=== PATIENT | female | born 1955 | race Caucasian/White ===

== ENCOUNTER 2018-05-16 08:58 | Observation (INO) | payer BC ==
[~2018-05-16] VITALS: Ht 177.8 cm; Wt 118.4 kg
[~2018-05-16 08:58] MED LIST: ALBU90OI INH; AMOCLA875 PO; ASPI325EC PO; ASPI81CH PO; ATOR10; BENZ100A PO; BUME2 PO; Bystolic10 MG PO; COLE1 PO; CONEST.3 PO; CONEST.625; CYCL10 PO; DICY20 PO; DULO60; DULO60 PO; ESOM20 PO; ESTEST.625 PO; ESTR.625; ESTRADOIL; FLUO20 PO; HYDSUL200 PO; K-Dur 20 meq T20 MEQ PO; KETO10 PO; LEVFLO500 PO; LEVSOD125 PO; LEVSOD200 PO; LEVSOD25 PO; LEVSOD50 PO; LORA1 PO; LOSA50 PO; MAGOXI400 PO; MENEST; OLME20 PO; PANT20 PO; POTCHL20ER PO; ROSU10TA; SERT50; ZOLP10; ZOLP10 PO
[2018-05-16 09:53] LABS: BASOPHILS ABSOLUTE AUTO 0.03 K/mm3 (0.00-0.23); BASOPHILS PERCENT AUTO 0 % (0-2); EOSINOPHILS ABSOLUTE AUTO 0.01 K/mm3 (0.00-0.68); EOSINOPHILS PERCENT AUTO 0 % (0-6); Hematocrit 42.6 % (33.0-51.0); Hemoglobin 13.8 g/dL (11.5-16.0); IMMATURE GRAN ABSOLUTE AUTO 0.06 K/mm3 (0.00-0.10); IMMATURE GRAN PERCENT AUTO 0 % (0-1); LYMPHOCYTES ABSOLUTE AUTO 0.67 K/mm3 (0.84-5.20); LYMPHOCYTES PERCENT AUTO 4 % (21-46); MONOCYTES ABSOLUTE AUTO 0.47 K/mm3 (0.16-1.47); MONOCYTES PERCENT AUTO 3 % (4-13); Mean Corpuscular HGB 29.9 pg (26.0-34.0); Mean Corpuscular HGB Conc 32.4 g/dL (31.5-36.5); Mean Corpuscular Volume 92 fL (80-100); NEUTROPHILS ABSOLUTE AUTO 14.57 K/mm3 (1.96-9.15); NEUTROPHILS PERCENT AUTO 92 % (41-73); Platelet Count 275 K/mm3 (150-400); RDW Coefficient Variation 13.2 % (11.7-14.2); RDW Standard Deviation 45.3 fL (35.1-46.3); Red Blood Cell Count 4.61 M/mm3 (3.80-5.20); White Blood Cell Count 15.81 K/mm3 (4.00-11.30)
[2018-05-16 10:08] LABS: Alanine Aminotransfer (ALT/SGP 19 U/L (12-78); Albumin, Blood 3.2 g/dL (3.4-5.0); Albumin/Globulin Ratio 0.7 (0.8-1.8); Alk Phos 85 U/L (50-136); Anion Gap 10 mmol/L (6-16); Aspartate Aminotrans (AST/SGOT 18 U/L (12-37); Bilirubin, Total 0.3 mg/dL (0.1-1.0); Blood Urea Nitrogen 11 mg/dL (8-24); Bun/Creatinine Ratio 21.9 (12.0-20.0); CO2, Blood 25 mmol/L (21-32); Calcium, Blood 8.6 mg/dL (8.5-10.1); Chloride, Blood 97 mmol/L (98-108); Globulin, Blood 4.9 g/dL (2.2-4.0); Glomerular Filtration Rate >60 (60-); Glucose, Blood 121 mg/dL (70-99); Potassium, Blood 3.8 mmol/L (3.5-5.5); Sodium, Blood 132 mmol/L (136-145); Total Protein, Blood 8.1 g/dL (6.4-8.2); Troponin I <0.015 ng/mL (0.000-0.040)
[2018-05-16] MEDS ORDERED: NEBI10 PO (10:54)
[2018-05-16] MEDS ORDERED: Voltaren100 GM TOP (10:54)
--- NOTE | 2018-05-16 13:18 | NUR ---
Patient confirms NPO status and agrees with scheduled surgery. PT TO DS FROM ER. REQUEST TO USE BATHROOM WHEN ARRIVE TO DS. VITAL SIGNS TAKEN DR. CAMPA TO BEDSIDE.
--- NOTE | 2018-05-16 14:18 | NUR ---
05/16/18 1418 Iram Villarreal PATIENT IS ON SCHEDULED ANTIBIOTICS. UNASYN 3 GM ADMINISTERED AT 1135
--- NOTE | 2018-05-16 16:05 | NUR ---
PATIENT STATES SHE DOES HAVE SLEEP APNEA, SHE WILL SEE IF HER FAMILY CAN BRING IT IN FOR HER TONIGHT.
--- NOTE | 2018-05-16 16:15 | NUR ---
ARRIVES TO ROOM FROM PACU S/P LAP APPY-GANGRENOUS. PT ALERT ABLE TO STAND AND TRANSFER SELF TO BED. STATES PAIN IS VERY MINIMAL, DENIES ANY N/V. ABD WITH STERISTRIPS THAT ARE INTACT. SOME DRAINAGE FROM UMBILICUS-PLACED SOME GAUZE AND LARGE BANDAID. VSS AFEBRILE. GAVE SOME ICE CHIPS.
--- NOTE | 2018-05-16 17:28 | NUR ---
DOING WELL PT HAS BEEN TOLERATING PO. VS REMAIN STABLE. PAIN IS STILL MINIMAL. DRESSING IS INTACT. PT HAS LOTS OF FAMILY IN ROOM. CALL LIGHT IN REACH.
[2018-05-17 05:44] LABS: BASOPHILS ABSOLUTE AUTO 0.01 K/mm3 (0.00-0.23); BASOPHILS PERCENT AUTO 0 % (0-2); EOSINOPHILS ABSOLUTE AUTO 0.01 K/mm3 (0.00-0.68); EOSINOPHILS PERCENT AUTO 0 % (0-6); Hematocrit 33.6 % (33.0-51.0); Hemoglobin 10.7 g/dL (11.5-16.0); IMMATURE GRAN ABSOLUTE AUTO 0.04 K/mm3 (0.00-0.10); IMMATURE GRAN PERCENT AUTO 0 % (0-1); LYMPHOCYTES ABSOLUTE AUTO 0.98 K/mm3 (0.84-5.20); LYMPHOCYTES PERCENT AUTO 11 % (21-46); MONOCYTES ABSOLUTE AUTO 0.44 K/mm3 (0.16-1.47); MONOCYTES PERCENT AUTO 5 % (4-13); Mean Corpuscular HGB 29.1 pg (26.0-34.0); Mean Corpuscular HGB Conc 31.8 g/dL (31.5-36.5); Mean Corpuscular Volume 91 fL (80-100); Mean Platelet Volume 10.8 fL (9.1-12.4); NEUTROPHILS PERCENT AUTO 84 % (41-73); Platelet Count 230 K/mm3 (150-400); RDW Coefficient Variation 13.6 % (11.7-14.2); RDW Standard Deviation 45.5 fL (35.1-46.3); Red Blood Cell Count 3.68 M/mm3 (3.80-5.20); White Blood Cell Count 9.08 K/mm3 (4.00-11.30)
[2018-05-17 06:11] LABS: Anion Gap 6 mmol/L (6-16); Blood Urea Nitrogen 13 mg/dL (8-24); Bun/Creatinine Ratio 18.5 (12.0-20.0); CO2, Blood 29 mmol/L (21-32); Calcium, Blood 7.8 mg/dL (8.5-10.1); Chloride, Blood 103 mmol/L (98-108); Glomerular Filtration Rate >60 (60-); Glucose, Blood 110 mg/dL (70-99); Potassium, Blood 3.7 mmol/L (3.5-5.5); Sodium, Blood 138 mmol/L (136-145)
--- NOTE | 2018-05-17 06:45 | NUR ---
SHIFT SUMMARY PT IS POD 1 LAP APPY. PAIN WELL MANAGED WITH MINIMAL MEDICATION. FLUIDS RAN OVERNIGHT FOR REHYDRATION. PT DENIES N/V. SHE HAD NOT PASSED FLATUS OF LAST NIGHT. TELE WAS SINUS AT 98 W/ OCC PVCs PER TELE MONITOR AT TIME OF ASSESSMENT. STERI-STRIPS TO ABD C/D/I, UMBILICUS SITE REINFORCED BUT NO LONGER BLEEDING. PT A&O, INDEP IN THE ROOM. ABC RAN PER ORDERS. WILL CTM UNTIL PASS TO NEXT SHIFT.
[2018-05-17] MEDS ORDERED: METO25ER PO (16:46)
[2018-05-17] MEDS ORDERED: KETO10 PO (16:56)
--- NOTE | 2018-05-17 17:41 | NUR ---
DC'D HOME, DC INSTRUCTIONS GIVEN, VERBALIZED UNDERSTANDING, TOLERATED REGULAR DIET THAT PT'S FAMILY BROUGHT FAIRLY WELL, HAD MINIMAL NAUSEA THIS EVENING THAT RESOLVED ON ITS OWN PER PT, DENIES AND NEED FOR PAIN MEDS, DC'D HOME W/ DAUGHTER.
== END 2018-05-17 17:45 | disposition home or self-care (01) ==
LOC: ER 08:58 → SURS 08:59
PROVIDERS: Emergency Medicine; Surgery; ADMIT Internal Medicine
PROC: 0DTJ4ZZ Resection of Appendix, Percutaneous Endoscopic Approach (ICD-10-PCS; principal; 2018-05-16 13:15)
DX: K35.80 Unspecified acute appendicitis (principal); E66.9 Obesity, unspecified; G47.30 Sleep apnea, unspecified; I10 Essential (primary) hypertension; E03.9 Hypothyroidism, unspecified; M35.00 Sjogren syndrome, unspecified; M54.9 Dorsalgia, unspecified; G89.29 Other chronic pain; I48.91 Unspecified atrial fibrillation; F32.9 Major depressive disorder, single episode, unspecified; Z87.891 Personal history of nicotine dependence; Z88.1 Allergy status to other antibiotic agents; Z88.5 Allergy status to narcotic agent; Z79.899 Other long term (current) drug therapy; Z68.37 Body mass index [BMI] 37.0-37.9, adult
CPT/HCPCS: 36415; 71045; 74176; 80048; 80053; 83690; 84484; 85025; 88304; 93005; 93010; 96361; 96365; 96366; 96375; 96376; 99285-25; G0378; J0295; J0330; J1100; J1170; J1200; J1885; J2250; J2370; J2405; J2710; J3010; J7030; J7120

== ENCOUNTER 2019-12-29 00:09 | Day surgery (SDC) | payer OTHER ==
[~2019-12-29 00:09] MED LIST changes: +METO25ER PO; +NEBI10 PO; +Voltaren100 GM TOP
== END 2019-12-29 23:14 | disposition home or self-care (01) ==
LOC: WOUND 00:09
DX: L97.822 Non-pressure chronic ulcer of other part of left lower leg with fat layer exposed (principal); W54.0XXS Bitten by dog, sequela; E66.01 Morbid (severe) obesity due to excess calories; E03.9 Hypothyroidism, unspecified; Z68.41 Body mass index [BMI] 40.0-44.9, adult; Z79.899 Other long term (current) drug therapy

== ENCOUNTER 2020-01-05 01:46 | Day surgery (SDC) | payer OTHER | END 2020-01-05 22:41 | disposition home or self-care (01) | LOC: WOUND 01:46 | DX: L97.822 Non-pressure chronic ulcer of other part of left lower leg with fat layer exposed (principal); W54.0XXS Bitten by dog, sequela; E03.9 Hypothyroidism, unspecified; E66.01 Morbid (severe) obesity due to excess calories; F32.9 Major depressive disorder, single episode, unspecified; Z68.41 Body mass index [BMI] 40.0-44.9, adult; Z79.899 Other long term (current) drug therapy | CPT/HCPCS: 87071; 87075; 87205 ==

== ENCOUNTER 2020-01-12 00:33 | Day surgery (SDC) | payer OTHER | END 2020-01-12 22:41 | disposition home or self-care (01) | LOC: WOUND 00:33 | DX: S81.852A Open bite, left lower leg, initial encounter (principal); I96 Gangrene, not elsewhere classified; L97.822 Non-pressure chronic ulcer of other part of left lower leg with fat layer exposed; F32.9 Major depressive disorder, single episode, unspecified; E78.5 Hyperlipidemia, unspecified; E03.9 Hypothyroidism, unspecified; I49.3 Ventricular premature depolarization; E07.9 Disorder of thyroid, unspecified; I10 Essential (primary) hypertension; G62.9 Polyneuropathy, unspecified; G47.30 Sleep apnea, unspecified; E66.01 Morbid (severe) obesity due to excess calories; Z68.41 Body mass index [BMI] 40.0-44.9, adult; Z99.89 Dependence on other enabling machines and devices; Z88.1 Allergy status to other antibiotic agents; Z88.5 Allergy status to narcotic agent; Z79.899 Other long term (current) drug therapy; Z96.60 Presence of unspecified orthopedic joint implant; W54.0XXA Bitten by dog, initial encounter ==

== ENCOUNTER 2020-02-10 00:31 | Day surgery (SDC) | payer OTHER | END 2020-02-10 22:43 | disposition home or self-care (01) | LOC: WOUND 00:31 | DX: L97.822 Non-pressure chronic ulcer of other part of left lower leg with fat layer exposed (principal); W54.0XXS Bitten by dog, sequela | CPT/HCPCS: G0463 ==

== ENCOUNTER 2020-02-17 00:46 | Day surgery (SDC) | payer OTHER | END 2020-02-17 12:00 | disposition home or self-care (01) | LOC: WOUND 00:46 | DX: L97.822 Non-pressure chronic ulcer of other part of left lower leg with fat layer exposed (principal); R60.9 Edema, unspecified; Z88.1 Allergy status to other antibiotic agents; Z88.5 Allergy status to narcotic agent; Z79.899 Other long term (current) drug therapy; W54.0XXA Bitten by dog, initial encounter | CPT/HCPCS: G0463 ==

== ENCOUNTER 2020-02-24 00:40 | Day surgery (SDC) | payer OTHER | END 2020-02-24 22:50 | disposition home or self-care (01) | LOC: WOUND 00:40 | DX: L97.822 Non-pressure chronic ulcer of other part of left lower leg with fat layer exposed (principal); W54.0XXS Bitten by dog, sequela; E66.01 Morbid (severe) obesity due to excess calories; E03.9 Hypothyroidism, unspecified; Z68.41 Body mass index [BMI] 40.0-44.9, adult | CPT/HCPCS: G0463 ==

== ENCOUNTER 2020-03-09 03:20 | Day surgery (SDC) | payer OTHER | END 2020-03-09 23:29 | disposition home or self-care (01) | LOC: WOUND 03:20 | DX: S81.852D Open bite, left lower leg, subsequent encounter (principal); L97.821 Non-pressure chronic ulcer of other part of left lower leg limited to breakdown of skin; R60.0 Localized edema; E78.5 Hyperlipidemia, unspecified; E03.9 Hypothyroidism, unspecified; G47.33 Obstructive sleep apnea (adult) (pediatric); I49.9 Cardiac arrhythmia, unspecified; I10 Essential (primary) hypertension; G62.9 Polyneuropathy, unspecified; F32.9 Major depressive disorder, single episode, unspecified; E66.01 Morbid (severe) obesity due to excess calories; Z68.41 Body mass index [BMI] 40.0-44.9, adult; Z79.01 Long term (current) use of anticoagulants; Z79.899 Other long term (current) drug therapy; Z87.891 Personal history of nicotine dependence; Z88.1 Allergy status to other antibiotic agents; Z88.5 Allergy status to narcotic agent; W54.0XXD Bitten by dog, subsequent encounter | CPT/HCPCS: G0463 ==

== ENCOUNTER 2021-05-15 11:28 | Day surgery (SDC) | payer BC ==
[~2021-05-15] VITALS: Ht 175.3 cm; Wt 127.9 kg
[2021-05-15] MEDS ORDERED: ZOLPIDEM TARTRA10 MG PO (12:47)
[2021-05-15] MEDS ORDERED: K-Dur20 MEQ PO (12:47)
[2021-05-15] MEDS ORDERED: Bumetanide2 MG PO (12:48)
[2021-05-15] MEDS ORDERED: NEBI5 PO (12:48)
[2021-05-15] MEDS ORDERED: OLME5TAB PO (12:48)
--- NOTE | 2021-05-15 14:57 | NUR ---
05/15/21 1457 JESÚS VENCES PT WAS GIVEN NORCO DESPITE HAVING NARCOTIC ALLERGY. PT DISCUSSED IT WITH DR GUSTAFSON AND DECIDED SHE WOULD TRY IT IF SHE NEEDED SOMETHING. PT STATES IT CAUSES HER TO ITCH BUT BENEDRYL HELPS.
== END 2021-05-15 14:45 | disposition home or self-care (01) ==
LOC: ORSCSDS 11:28
PROVIDERS: Orthopaedic Surgery
PROC: 01N50ZZ Release Median Nerve, Open Approach (ICD-10-PCS; principal; 2021-05-15 12:30)
DX: G56.01 Carpal tunnel syndrome, right upper limb (principal); I10 Essential (primary) hypertension; I48.91 Unspecified atrial fibrillation; G47.33 Obstructive sleep apnea (adult) (pediatric); Z87.891 Personal history of nicotine dependence; E03.9 Hypothyroidism, unspecified; J45.909 Unspecified asthma, uncomplicated; Z79.899 Other long term (current) drug therapy; E66.01 Morbid (severe) obesity due to excess calories; Z68.41 Body mass index [BMI] 40.0-44.9, adult
CPT/HCPCS: 82947; J0690; J1885; J2250; J2704; J3010; J7120

== ENCOUNTER 2023-01-26 07:01 | Emergency (ER) | payer BC ==
[~2023-01-26] VITALS: Ht 177.8 cm; Wt 133.4 kg
[~2023-01-26 07:01] MED LIST changes: +Bumetanide2 MG PO; +K-Dur20 MEQ PO; +NEBI5 PO; +OLME5TAB PO; +ZOLPIDEM TARTRA10 MG PO
[2023-01-26 07:39] LABS: BASOPHILS ABSOLUTE AUTO 0.01 K/mm3 (0.00-0.23); BASOPHILS PERCENT AUTO 0 % (0-2); EOSINOPHILS ABSOLUTE AUTO 0.04 K/mm3 (0.00-0.68); EOSINOPHILS PERCENT AUTO 0 % (0-6); Hematocrit 38.2 % (33.0-51.0); Hemoglobin 12.5 g/dL (11.5-16.0); IMMATURE GRAN ABSOLUTE AUTO 0.04 K/mm3 (0.00-0.10); IMMATURE GRAN PERCENT AUTO 0 % (0-1); LYMPHOCYTES PERCENT AUTO 5 % (21-46); MONOCYTES ABSOLUTE AUTO 0.53 K/mm3 (0.16-1.47); MONOCYTES PERCENT AUTO 5 % (4-13); Mean Corpuscular HGB 29.3 pg (26.0-34.0); Mean Corpuscular HGB Conc 32.7 g/dL (31.5-36.5); Mean Corpuscular Volume 90 fL (80-100); Mean Platelet Volume 10.3 fL (9.1-12.4); NEUTROPHILS ABSOLUTE AUTO 10.01 K/mm3 (1.96-9.15); NEUTROPHILS PERCENT AUTO 89 % (41-73); Platelet Count 240 K/mm3 (150-400); RDW Coefficient Variation 13.4 % (11.7-14.2); Red Blood Cell Count 4.27 M/mm3 (3.80-5.20); White Blood Cell Count 11.23 K/mm3 (4.00-11.30)
[2023-01-26 07:45] VITALS: BP 149/95
[2023-01-26 07:59] LABS: Albumin/Globulin Ratio 0.7 (0.8-1.8); Bilirubin, Total 0.3 mg/dL (0.1-1.0); Bun/Creatinine Ratio 19.8 (12.0-20.0); Creatinine, Blood 0.66 mg/dL (0.40-1.00); Globulin, Blood 4.4 g/dL (2.2-4.0); Potassium, Blood 4.1 mmol/L (3.5-5.5); Total Protein, Blood 7.4 g/dL (6.4-8.2)
== END 2023-01-26 11:10 | disposition home or self-care (01) ==
LOC: ER 07:01
PROVIDERS: Student in an Organized Health Care Education/Training Program
DX: U07.1 COVID-19 (principal); R00.0 Tachycardia, unspecified; I50.9 Heart failure, unspecified; Z88.5 Allergy status to narcotic agent; Z88.8 Allergy status to other drugs, medicaments and biological substances; Z86.16 Personal history of COVID-19; Z79.899 Other long term (current) drug therapy; Z87.891 Personal history of nicotine dependence
CPT/HCPCS: 80053; 84443; 84484; 85025; 93005; 93010; 96374; 96375; 99285-25; A9270; J0780; J1885

== ENCOUNTER → 2023-02-05 | Outpatient (CLI) | payer BC | LOC: LAB 15:31 → LAB SHORT 15:31 | DX: L01.01 Non-bullous impetigo (principal) | CPT/HCPCS: 87070; 87077; 87147; 87186; 87205 ==

== ENCOUNTER 2024-01-29 17:40 | Inpatient (IN) | payer BC ==
[~2024-01-29] VITALS: Ht 170.2 cm; Wt 140.2 kg
[~2024-01-29 17:40] MED LIST changes: -NEBI5 PO; -OLME5TAB PO
[2024-01-29] MEDS ORDERED: Ondansetron HCl 2 MG / ML 2ML Vial IV ONE (18:30)
[2024-01-29] MEDS ORDERED: Lactated Ringer's 1,000 ML IV ONE (18:30)
[2024-01-29 18:47] LABS: BASOPHILS ABSOLUTE AUTO 0.02 K/mm3 (0.00-0.23); BASOPHILS PERCENT AUTO 0 % (0-2); EOSINOPHILS ABSOLUTE AUTO 0.04 K/mm3 (0.00-0.68); EOSINOPHILS PERCENT AUTO 0 % (0-6); Hematocrit 37.1 % (33.0-51.0); Hemoglobin 11.9 g/dL (11.5-16.0); IMMATURE GRAN ABSOLUTE AUTO 0.03 K/mm3 (0.00-0.10); IMMATURE GRAN PERCENT AUTO 0 % (0-1); LYMPHOCYTES ABSOLUTE AUTO 0.69 K/mm3 (0.84-5.20); LYMPHOCYTES PERCENT AUTO 7 % (21-46); MONOCYTES ABSOLUTE AUTO 0.35 K/mm3 (0.16-1.47); MONOCYTES PERCENT AUTO 4 % (4-13); Mean Corpuscular HGB 28.7 pg (26.0-34.0); Mean Corpuscular HGB Conc 32.1 g/dL (31.5-36.5); Mean Corpuscular Volume 90 fL (80-100); Mean Platelet Volume 10.2 fL (9.1-12.4); NEUTROPHILS ABSOLUTE AUTO 8.73 K/mm3 (1.96-9.15); NEUTROPHILS PERCENT AUTO 89 % (41-73); Platelet Count 271 K/mm3 (150-400); RDW Coefficient Variation 14.1 % (11.7-14.2); RDW Standard Deviation 46.5 fL (35.1-46.3); Red Blood Cell Count 4.14 M/mm3 (3.80-5.20); White Blood Cell Count 9.86 K/mm3 (4.00-11.30)
[2024-01-29] MEDS ORDERED: LORazepam 2 MG/ML 1ML Injection IV ONE (18:50)
[2024-01-29 19:11] LABS: Magnesium, Blood 1.9 mg/dL (1.6-2.4)
[2024-01-29 19:15] LABS: Albumin, Blood 2.9 g/dL (3.4-5.0); Albumin/Globulin Ratio 0.6 (0.8-1.8); Bilirubin, Total 0.3 mg/dL (0.1-1.0); Bun/Creatinine Ratio 24.6 (12.0-20.0); Calcium, Blood 9.6 mg/dL (8.5-10.1); Creatinine, Blood 0.69 mg/dL (0.40-1.00); Globulin, Blood 4.5 g/dL (2.2-4.0); Potassium, Blood 4.2 mmol/L (3.5-5.5); Total Protein, Blood 7.4 g/dL (6.4-8.2)
[2024-01-29] MEDS ORDERED: Ketorolac Tromethamine 15mg Vial IV ONE (19:50)
[2024-01-29 19:52] LABS: Influenza A, PCR NEGATIVE (NEGATIVE); Influenza B, PCR NEGATIVE (NEGATIVE); Resp Syncytial Virus, PCR NEGATIVE (NEGATIVE); SARS-Cov-2 (COVID-19) PCR, MMC NEGATIVE (NEGATIVE)
[2024-01-29 20:23] LABS: Source, Urine Clean Catch
[2024-01-29 20:29] LABS: Appearance, Urine Clear (Clear); Bilirubin, Urine Neg (Neg); Blood, Urine 5+ (Neg); Color, Urine Yellow (P-Yellow); Glucose Qualitative, Urine Neg (Neg); Ketones, Urine 2+ (Neg); Leukocyte Esterase, Urine 2+ (Neg); Nitrite, Urine Pos (Neg); Protein, Urine 2+ (Neg); Specific Gravity, Urine 1.015 (1.003-1.022); Urobilinogen, Urine NORM (Normal)
[2024-01-29 20:37] LABS: Bacteria Mod /hpf; Red Blood Cells, Urine 25-50 /hpf (0-2); Squamous Epithelial Cells Few /hpf (Few); White Blood Cells, Urine 25-50 /hpf (0-5)
[2024-01-29] MEDS ORDERED: CefTRIAXone Sodium 1,000 MG in NS 100 ML IV ONE (21:10)
[2024-01-29] MEDS ORDERED: Acetaminophen 325 MG TABLET PO PRN (22:20)
[2024-01-29] MEDS ORDERED: FLU VACC TS2024-25(6MOS UP)/PF 45 MCG/0.5 ML SYRINGE IM SCH (22:25)
[2024-01-29] MEDS ORDERED: Ondansetron HCl 2 MG / ML 2ML Vial IV PRN (22:25)
[2024-01-29] MEDS ORDERED: Prochlorperazine Edisylate 10 mg Vial IV PRN (22:25)
[2024-01-29] MEDS ORDERED: Zolpidem Tartrate 10 MG Tab PO PRN (22:30)
[2024-01-29] MEDS ORDERED: HYDROmorphone HCl/Pf 1MG SYR IV ONE (22:35)
[2024-01-29] MEDS ORDERED: Albuterol 2.5 MG/3 ML VIAL INH ONE (22:40)
[2024-01-29] MEDS ORDERED: Ketorolac Tromethamine 15mg Vial IV PRN (22:55)
[2024-01-29 23:36] VITALS: BP 149/86
[2024-01-29] MEDS ORDERED: HYDROmorphone HCl/Pf 1MG SYR IV PRN (23:50)
[2024-01-29] MEDS ORDERED: EUTHYROX200 MC1 PO (23:58)
[2024-01-30] VITALS (18 sets, daily range): BP systolic 82–111; BP diastolic 42–66
[2024-01-30] MEDS ORDERED: Metoprolol Tartrate 50 MG Tab PO SCH
[2024-01-30] MEDS ORDERED: ELIQUIS5 M3 PO (00:02)
[2024-01-30] MEDS ORDERED: DILT60 PO (00:03)
[2024-01-30] MEDS ORDERED: Metoprolol Tartrate 1 MG/ML 5 ML VIAL IV PRN (00:05)
[2024-01-30] MEDS ORDERED: SYMBICORT 80-10.2 GM INH (00:15)
[2024-01-30] MEDS ORDERED: EPINEPHRIN0.3 MG/0.1 IM (00:19)
[2024-01-30] MEDS ORDERED: ESTR2 PO (00:20)
[2024-01-30] MEDS ORDERED: PYRIDIUM200 MG PO (00:20)
[2024-01-30] MEDS ORDERED: Naloxone HCl 0.4MG / ML 1ML Vial IV PRN (00:25)
[2024-01-30] MEDS ORDERED: Albuterol 2.5 MG/3 ML VIAL INH PRN (00:30)
[2024-01-30] MEDS ORDERED: Lactated Ringer's 1,000 ML IV SCH ×3 (01:00→14:40)
[2024-01-30 05:43] LABS: Hematocrit 32.3 % (33.0-51.0); Hemoglobin 10.2 g/dL (11.5-16.0); Mean Corpuscular HGB 28.9 pg (26.0-34.0); Mean Corpuscular HGB Conc 31.6 g/dL (31.5-36.5); Mean Corpuscular Volume 92 fL (80-100); Platelet Count 227 K/mm3 (150-400); RDW Coefficient Variation 14.4 % (11.7-14.2); RDW Standard Deviation 47.8 fL (35.1-46.3); Red Blood Cell Count 3.53 M/mm3 (3.80-5.20); White Blood Cell Count 14.72 K/mm3 (4.00-11.30)
--- NOTE | 2024-01-30 05:47 | NUR ---
SHIFT SUMMARY NOC ADMIT FROM ED WITH AHRF, 5MM L KINDNEY STONE/UTI. UPON ARRIVAL TO UNIT PT TACHYCARDIC IN 130'S SUSTAINED FOR 30 MINUTES. FIRST DOSE PO 50 MG METOPROLOL GIVEN PT ON TELE WITH HR NOW IN 80'S-90'S. PT HAS HX AFIB/AFLUTTER RVR AND IS ON ELIQUIS AND BYSTOLIC FOR RATE CONTROL. O2 REQUIREMENTS HAVE INCREASED TO 6L UP FROM 4L NOW BACK ON 4L, HOME CPAP SET UP BY RT WITH 6L BLEED IN, PT MAINTAINING SPO2 >92% ON CONTINOUS PULSE OXIMETRY. PT WILL DESAT IN LOW 80'S WHEN STANDING AND WITH MOVEMENT. L FLANK PAIN BEING MANAGED VAISHNAVI EMAR, NO C/O OF N/V SINCE ARRIVING ON UNIT. RX HAS BEEN RECONCILED. PT URINE IS ORANGE IN COLOR DUE TO PT BEING ON PYRIDIUM. 1 TIME BAG OF LR INFUSING @ 150 ML/HR. PT IS A/O X 4. PLEASANT AND COOPERATIVE WITH CARE, 1-2PA FWW TO BSC DUE TO DYSPNEA AND DESATURATION AND L KNEE INJURY. 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 PT HAS RECENT L KNEE INJURY INVOLOVING MENISCUS. PT CURRENTLY RESTING WITH BED IN LOWEST POSITION, AND CALL LIGHT WITHIN REACH.
[2024-01-30] MEDS ORDERED: Levothyroxine Sodium 0.05 MG Tab PO SCH (06:00)
[2024-01-30] MEDS ORDERED: Levothyroxine Sodium 0.1 MG Tab PO SCH (06:00)
[2024-01-30 06:27] LABS: Albumin, Blood 2.1 g/dL (3.4-5.0); Albumin/Globulin Ratio 0.6 (0.8-1.8); Bilirubin, Total 0.3 mg/dL (0.1-1.0); Bun/Creatinine Ratio 15.7 (12.0-20.0); Calcium, Blood 8.6 mg/dL (8.5-10.1); Creatinine, Blood 1.21 mg/dL (0.40-1.00); Globulin, Blood 3.7 g/dL (2.2-4.0); Magnesium, Blood 1.2 mg/dL (1.6-2.4); Potassium, Blood 3.1 mmol/L (3.5-5.5); Total Protein, Blood 5.8 g/dL (6.4-8.2)
--- NOTE | 2024-01-30 06:38 | NUR ---
PT AM LABS POTASSIUM 3.1 AND MAGNESIUM 1.2. HOSPITALIST NOTIFIED AND ORDERS FOR KCL 40 MEQ PO X 1, AND MG SULFATE 2 GM IV X 1 GIVEN.
[2024-01-30] MEDS ORDERED: Potassium Chloride 20 MEQ TabCR PO ONE (06:40)
[2024-01-30] MEDS ORDERED: Magnesium Sulf 2 GM/Water 50ML 50 ML IV ONE (06:40)
[2024-01-30] MEDS ORDERED: NS 250 ML IV PRN (06:40)
[2024-01-30 07:10] LABS: BAND PERCENT MAN 36 % (0-8); BASOPHILS PERCENT MAN 0 % (0-2); EOSINOPHILS PERCENT MAN 0 % (0-6); LYMPHOCYTES ABSOLUTE MAN 0.58 K/mm3 (0.84-5.20); LYMPHOCYTES PERCENT MAN 4 % (21-46); METAMYELOCYTE ABSOLUTE MAN 0.29 K/mm3 (0.00-0.00); METAMYELOCYTE PERCENT MAN 2 % (0-0); MONOCYTES ABSOLUTE MAN 0.29 K/mm3 (0.16-1.47); MONOCYTES PERCENT MAN 2 % (4-13); NEUTROPHILS ABSOLUTE MAN 13.54 K/mm3 (1.96-9.15); SEG NEUTROPHILS PERCENT MAN 56 % (41-73); TOTAL CELLS COUNTED 100
[2024-01-30] MEDS ORDERED: DULoxetine HCL 60 MG Capsule DR PO SCH ×2 (09:00→21:00)
[2024-01-30] MEDS ORDERED: Enoxaparin 40 MG/0.4 ML SYR SC SCH (09:00)
[2024-01-30] MEDS ORDERED: Apixaban 5 MG Tab PO SCH (09:00)
[2024-01-30] MEDS ORDERED: Docusate Sodium 100 MG Cap PO SCH (09:00)
[2024-01-30] MEDS ORDERED: Lactobacil 2-S.Thermo-Bifido 1 1 Cap PO SCH (09:00)
[2024-01-30] MEDS ORDERED: Lactated Ringer's 1,000 ML IV ONE ×2 (13:25→14:45)
[2024-01-30 13:31] LABS: Bun/Creatinine Ratio 16.9 (12.0-20.0); Calcium, Blood 8.8 mg/dL (8.5-10.1); Creatinine, Blood 1.3 mg/dL (0.40-1.00); Potassium, Blood 4.1 mmol/L (3.5-5.5)
[2024-01-30] MEDS ORDERED: Midodrine 5 MG Tab PO SCH ×2 (17:00→18:00)
[2024-01-30] MEDS ORDERED: Lactated Ringer's 500 ML IV STA (17:13)
--- NOTE | 2024-01-30 17:41 | NUR ---
SHIFT NOTE: PT A/OX4 ABLE TO MAKE HER NEEDS KNOWN. SHE IS ON TELE IN SINUS WITH NO ACUTE EVENTS THIS SHIFT. SHE DENIES CHEST PAIN/PRESSURE. HER BLOOD PRESSURE HAS BEEN LOW. MD NOTIFIED, MIDODRINE ORDERED AND ADMINISTERED. LR BOLUS GIVEN, SEE EMAR FOR ADMINISTRATION DETAILS. MD NOTIFIED OF CONTINUED SOFT PRESSURE. BLOOD CULUTRES AND LABS ORDERED AND MIDODRINE INCREASED. SHE IS ON RA WHEN AWAKE AND 3L BLEED IN ON CPAP WHEN SLEEPING. RA IS HER BASELINE. SHE DENIES PAIN. SHE IS 1P AST TO THE BATHROOM TO VOID. SHE HAD ONE INCONT BM THIS MORNING. SHE C/O OF FLANK PAIN DUE TO KIDNEY STONE. RFA IV IS PATENT WITHOUT PAIN/SWELLING. WILL CONTINUE TO MONITOR AND REPORT TO NEXT RN.
--- NOTE | 2024-01-30 19:13 | NUR ---
Summary. Pt arrived to ICU from medical floor alert and oriented, able to transfer without assistance to ICU bed. No acute needs. Report given to nightshift RN.
[2024-01-30] MEDS ORDERED: DiphenhydrAMINE HCL 25 MG Cap PO PRN (20:05)
[2024-01-30] MEDS ORDERED: CefTRIAXone Sodium 2,000 MG in NS 100 ML IV SCH (21:00)
[2024-01-30] MEDS ORDERED: SYMBICORT INH SCH (21:00)
--- NOTE | 2024-01-30 21:46 | NUR ---
ASSUME CARE: PT A/Ox4 AND COOPERATIVE W/CARE. VSS, MAP>65. PT SPO2 88-90s ON ARRIVAL, 2L NC APPLIED FOR SPO2>90. PT DENIES CHEST PAIN OR SOB. PT COMPLAINT OF ITCHINESS DUE TO PAIN MED, CALL TO PROVIDER FOR BENADRYL ORDER. PT ABLE TO SIT AND WALK TO TOILET W/ MINIMAL ASSIST, SOME COMPLAINT OF DIZZINESS. WILL UPDATE NEEDED.
[2024-01-31] VITALS (27 sets, daily range): BP systolic 99–184; BP diastolic 55–82
--- NOTE | 2024-01-31 05:11 | NUR ---
SHIFT SUMMARY: PT A/Ox4 T/O THE NIGHT AND COOPERATIVE W/CARE. BP STABLE, MAP>65, DENIES CHEST PAIN. SPO2>90% ON 2L NC, CPAP WORN FOR SLEEP AT 3L. PT SLEPT WELL T/O THE NIGHT. PT ABLE TO TRANSFER TO CHAIR AND TOILET W/ MINIMAL ASSISTANCE, SOME DIZZINESS W/STANDING. CALL LIGHT IN REACH. WILL REPORT TO ONCOMING RN.
[2024-01-31 06:51] LABS: BASOPHILS ABSOLUTE AUTO 0.05 K/mm3 (0.00-0.23); BASOPHILS PERCENT AUTO 0 % (0-2); EOSINOPHILS ABSOLUTE AUTO 0.07 K/mm3 (0.00-0.68); EOSINOPHILS PERCENT AUTO 0 % (0-6); Hemoglobin 9.2 g/dL (11.5-16.0); IMMATURE GRAN ABSOLUTE AUTO 0.28 K/mm3 (0.00-0.10); IMMATURE GRAN PERCENT AUTO 2 % (0-1); LYMPHOCYTES ABSOLUTE AUTO 1.36 K/mm3 (0.84-5.20); LYMPHOCYTES PERCENT AUTO 9 % (21-46); MONOCYTES PERCENT AUTO 5 % (4-13); Mean Corpuscular HGB 28.9 pg (26.0-34.0); Mean Corpuscular HGB Conc 31.7 g/dL (31.5-36.5); Mean Corpuscular Volume 91 fL (80-100); Mean Platelet Volume 10.5 fL (9.1-12.4); NEUTROPHILS ABSOLUTE AUTO 13.18 K/mm3 (1.96-9.15); NEUTROPHILS PERCENT AUTO 84 % (41-73); Platelet Count 197 K/mm3 (150-400); RDW Coefficient Variation 14.7 % (11.7-14.2); RDW Standard Deviation 49.6 fL (35.1-46.3); Red Blood Cell Count 3.18 M/mm3 (3.80-5.20); White Blood Cell Count 15.64 K/mm3 (4.00-11.30)
[2024-01-31 07:12] LABS: Albumin, Blood 2.1 g/dL (3.4-5.0); Albumin/Globulin Ratio 0.6 (0.8-1.8); Bilirubin, Total 0.2 mg/dL (0.1-1.0); Bun/Creatinine Ratio 25.2 (12.0-20.0); Calcium, Blood 8.8 mg/dL (8.5-10.1); Creatinine, Blood 0.91 mg/dL (0.40-1.00); Globulin, Blood 3.8 g/dL (2.2-4.0); Potassium, Blood 3.7 mmol/L (3.5-5.5); Total Protein, Blood 5.9 g/dL (6.4-8.2)
[2024-01-31] MEDS ORDERED: Ketorolac Tromethamine 15mg Vial IV PRN (11:45)
--- NOTE | 2024-01-31 12:45 | NUR ---
ASSUMED CARE AT 0700 AND RECEIVED REPORT FROM HEALTH AND FITNESS INSTRUCTOR RN. PT IS RESTING COMFORTABLY IN BED WITH CPAP ON WITH 3L. 02 SATS IN THE 90'S. BP PRESSURE IS STABLE, SYSTOLIC 120'S. HR 70'S. LR RUNNING.
[2024-01-31] MEDS ORDERED: Midodrine 5 MG Tab PO SCH ×2 (16:00)
--- NOTE | 2024-01-31 17:33 | NUR ---
SHIFT SUMMARY: PT REMAINED ORIENTED ONLY TO SELF, RESPONDING TO PAINFUL STIMULI ONLY. ORAL CARE COMPLETED. 700ML OF ORANGE URINE OUTPUT. IV REMOVED FROM LEFT UPPER ARM DUE TO WARMTH AND SWELLING. WOUND CARE COMPLETED PER ORDERS. PRECEDEX TITRATED DOWN GRADUALLY BY 0.2 INCREMENTS AND CURRENTLY AT 0.4MCG/KG/HR. WILL CONTINUE TO MONITOR AND GIVE REPORT TO ONCOMING RN.
--- NOTE | 2024-01-31 17:52 | NUR ---
SHIFT SUMMARY: A/OX4 FOR ENTIRETY OF SHIFT. SHE IS VERBALIZING NEEDS AND OBEYING COMMANDS. ON ROOM AIR AT TIMES, ON 2L NC WHEN SATS DROP BELOW 90. PT USING CPAP WHEN SLEEPING. PT REPORTED PAIN AT TIMES AND WAS TREATED PER JUL. PT HAS NOT PASSED KIDNEY STONE AT THIS TIME. WILL CONTINUE TO MONITOR AND GIVE REPORT TO ONCOMING RN
--- NOTE | 2024-01-31 20:38 | NUR ---
TRANSFER NOTE HANDOFF RECEIVED FROM [employer] APPRENTICE CLARK. PT ARRIVED TO FLOOR VIA WC. PT ORIENTED TO ROOM. PT IMMEDIATELY REQUESTED A SHOWER UPON ARRIVING IN THE ROOM. CALL BUTTON WITHIN REACH. SHE IS ON 2LPM O2 VIA NC. SLEEP STUDY PLANNED FOR [place]
--- NOTE | 2024-01-31 20:48 | NUR ---
PT TRANSFER TO [facility] REPORT GIVEN TO EMILIA. PT ABLE A/Ox4 AND ABLE TO TRANSFER W/MINIMAL ASSISTANCE TO WHEELCHAIR. ALL BELONGINGS BROUGHT TO [facility] W/HER INCLUDING CPAP.
--- NOTE | 2024-02-01 03:51 | NUR ---
SHIFT SUMMARY ADMITTED FOR ACUTE RESPIRATORY FAILURE W/HYPOXIA, UTI. FULL CODE. SLEEP STUDY IN PROGRESS AT THIS TIME. NEW: CURRENTLY 2 LPM BLEED IN ON HER HOME CPAP. SHE IS REQUIRING 2 LPM O2 VIA NC DURING THE DAY HERE, ON RA @ HOME NORMALLY. SHE IS ON ELIQUIS. INDEPENDENT IN ROOM. A&O X4. IV ANTIB RX ARE SCHEDULED. MIDODRINE HELD ON PREVIOUS SHIFT AND ON THIS SHIFT DUE TO VITAL SIGN OUT OF PARAMETERS. PAIN RX GIVEN THIS SHIFT. SHE DOES HAVE A KIDNEY STONE AND A UTI.
[2024-02-01 04:31] VITALS: BP 153/88
[2024-02-01 06:05] LABS: BASOPHILS ABSOLUTE AUTO 0.02 K/mm3 (0.00-0.23); BASOPHILS PERCENT AUTO 0 % (0-2); EOSINOPHILS PERCENT AUTO 1 % (0-6); Hemoglobin 9.2 g/dL (11.5-16.0); IMMATURE GRAN ABSOLUTE AUTO 0.06 K/mm3 (0.00-0.10); IMMATURE GRAN PERCENT AUTO 1 % (0-1); LYMPHOCYTES ABSOLUTE AUTO 0.93 K/mm3 (0.84-5.20); LYMPHOCYTES PERCENT AUTO 9 % (21-46); MONOCYTES ABSOLUTE AUTO 0.47 K/mm3 (0.16-1.47); MONOCYTES PERCENT AUTO 5 % (4-13); Mean Corpuscular HGB Conc 31.7 g/dL (31.5-36.5); Mean Corpuscular Volume 92 fL (80-100); Mean Platelet Volume 10.2 fL (9.1-12.4); NEUTROPHILS ABSOLUTE AUTO 8.47 K/mm3 (1.96-9.15); NEUTROPHILS PERCENT AUTO 84 % (41-73); Platelet Count 191 K/mm3 (150-400); RDW Coefficient Variation 14.3 % (11.7-14.2); RDW Standard Deviation 48.5 fL (35.1-46.3); Red Blood Cell Count 3.17 M/mm3 (3.80-5.20); White Blood Cell Count 10.05 K/mm3 (4.00-11.30)
[2024-02-01 06:30] LABS: Albumin, Blood 2.1 g/dL (3.4-5.0); Albumin/Globulin Ratio 0.5 (0.8-1.8); Bilirubin, Total 0.2 mg/dL (0.1-1.0); Bun/Creatinine Ratio 20.6 (12.0-20.0); Calcium, Blood 9.1 mg/dL (8.5-10.1); Creatinine, Blood 1.02 mg/dL (0.40-1.00); Globulin, Blood 3.9 g/dL (2.2-4.0); Potassium, Blood 3.8 mmol/L (3.5-5.5)
[2024-02-01 07:29] VITALS: BP 175/83
[2024-02-01] MEDS ORDERED: Tamsulosin HCl 0.4 MG Cap PO SCH (12:00)
[2024-02-01] MEDS ORDERED: Lidocaine 4% 1 Patch TOP SCH (12:55)
[2024-02-01] MEDS ORDERED: Bumetanide 0.25 MG/ML 10ML Vial IV SCH (12:55)
[2024-02-01] MEDS ORDERED: Mometasone/Formoterol MDI 100/5 mcg 13 GM INH SCH (14:20)
[2024-02-01] MEDS ORDERED: EpiNEPhrine 1 MG/1 ML 1ML Vial IV PRN (14:25)
[2024-02-01 15:26] VITALS: BP 165/79
--- NOTE | 2024-02-01 16:52 | NUR ---
SHIFT SUMMARY PT WOKE FOR SHIFT REPORT; SLEEPING IN BED WITH CPAP ON. PT ADMITTED FOR RESP FAILURE R/T FLUID OVERLOAD. PT WITH HX OF HTN, CHF, A-FIB; ON ELIQUIS. PT ALSO ADMITTED FOR UROSEPSIS R/T KIDNEY STONE; PT HAVING N/V AND L FLANK PAIN. DR GARCIA AND LATER DR RODARTE IN TO SEE PT AND DISCUSS PLAN OF CARE. ECHO COMPLETE. MEDICATIONS ADJUSTED, DR WALKER CONSULTED AND ORDERS ADDED; SEE CHART. PT NOW ON 1L FR AND 24 HR URINE. BLADDER SCAN DONE SHOWING PVR AT 0-5cc. VISITORS IN AND OUT TODAY. PT UP INDEPENDENTLY IN RM TO RECLINER CHAIR AND BTHRM NEEDED. PT MEDICATED FOR C/O L FLANK PAIN. IV BUMEX STARTED WITH GOOD RESULTS. PT RESTING QUIETLY ON CPAP AT THIS TIME. CALL LT IN REACH. ABLE TO MAKE NEEDS KNOWN.
[2024-02-01] MEDS ORDERED: Carvedilol 6.25 MG Tab PO SCH (17:00)
[2024-02-01 20:07] VITALS: BP 160/75
[2024-02-01] MEDS ORDERED: BENICAR 20 MG PO SCH (21:00)
[2024-02-01] MEDS ORDERED: BYSTOLIC 10 MG PO SCH (21:00)
[2024-02-02 05:38] VITALS: BP 159/78
[2024-02-02 05:39] LABS: Hemoglobin 9.3 g/dL (11.5-16.0)
[2024-02-02 06:08] LABS: BASOPHILS ABSOLUTE AUTO 0.02 K/mm3 (0.00-0.23); BASOPHILS PERCENT AUTO 0 % (0-2); EOSINOPHILS PERCENT AUTO 2 % (0-6); Hemoglobin 9.6 g/dL (11.5-16.0); IMMATURE GRAN ABSOLUTE AUTO 0.03 K/mm3 (0.00-0.10); IMMATURE GRAN PERCENT AUTO 1 % (0-1); LYMPHOCYTES PERCENT AUTO 15 % (21-46); MONOCYTES ABSOLUTE AUTO 0.31 K/mm3 (0.16-1.47); MONOCYTES PERCENT AUTO 5 % (4-13); Mean Corpuscular HGB 29.5 pg (26.0-34.0); Mean Corpuscular HGB Conc 33.1 g/dL (31.5-36.5); Mean Corpuscular Volume 89 fL (80-100); Mean Platelet Volume 10.8 fL (9.1-12.4); NEUTROPHILS ABSOLUTE AUTO 4.58 K/mm3 (1.96-9.15); NEUTROPHILS PERCENT AUTO 77 % (41-73); Platelet Count 226 K/mm3 (150-400); RDW Standard Deviation 45.8 fL (35.1-46.3); Red Blood Cell Count 3.25 M/mm3 (3.80-5.20); White Blood Cell Count 5.94 K/mm3 (4.00-11.30)
[2024-02-02 06:22] LABS: Albumin, Blood 2.2 g/dL (3.4-5.0); Albumin/Globulin Ratio 0.6 (0.8-1.8); Bilirubin, Total 0.3 mg/dL (0.1-1.0); Bun/Creatinine Ratio 17.5 (12.0-20.0); Calcium, Blood 9.3 mg/dL (8.5-10.1); Creatinine, Blood 1.03 mg/dL (0.40-1.00); Magnesium, Blood 1.7 mg/dL (1.6-2.4); Phosphorus, Blood 3.4 mg/dL (2.5-4.9); Potassium, Blood 3.6 mmol/L (3.5-5.5); Total Protein, Blood 6.2 g/dL (6.4-8.2)
--- NOTE | 2024-02-02 06:36 | NUR ---
SHIFT SUMMARY: Pt is admitted for acute respiratory failure with hypoxia and is a full code. Is alert and able to make needs known. ADLs have been IND. has had a mix of low to high level pains but has been mostly managed with positioning.
[2024-02-02 07:55] VITALS: BP 187/91
[2024-02-02] MEDS ORDERED: HydrALAZINE HCl 20 MG / ML 1ML Vial IV PRN (08:40)
[2024-02-02] MEDS ORDERED: Losartan Potassium 50 MG Tab PO SCH (09:00)
[2024-02-02] MEDS ORDERED: Estradiol 1 MG Tab PO SCH (09:00)
[2024-02-02] MEDS ORDERED: AmLODIPine Besylate 5 MG Tab PO SCH (09:00)
[2024-02-02 10:07] VITALS: BP 200/79
[2024-02-02] MEDS ORDERED: HYDROmorphone HCl 2 MG Tab PO PRN (10:20)
[2024-02-02 12:04] VITALS: BP 160/73
[2024-02-02 12:37] LABS: Protein, Urine Quantitative 12.2 mg/dL (0.0-11.9)
[2024-02-02 14:44] VITALS: BP 160/86
[2024-02-02] MEDS ORDERED: VISBIOME 112.51 EACH PO (16:10)
[2024-02-02] MEDS ORDERED: SULTRIDS PO (16:10)
[2024-02-02] MEDS ORDERED: ACET325 PO (16:14)
[2024-02-02] MEDS ORDERED: HYDCHL25 PO (16:16)
[2024-02-02] MEDS ORDERED: TAMS.4ER PO (16:16)
[2024-02-02] MEDS ORDERED: HYDMOR2 PO (16:17)
--- NOTE | 2024-02-02 17:54 | NUR ---
PT RESTING QUIETLY ON CPAP AT START OF SHIFT. WOKE EASILY FOR CARE. UP INDEPENDENTLY IN RM TO CHAIR AND BTHRM. 24 HR URINE COMPLETE AT 1200. PT CONTINUED TO STRAIN URINE FOR KIDNEY STONE. BP ELEVATED AGAIN TODAY PT HAS NOT BEEN ON HOME MEDICATIONS THIS ADMISSION. HOME MEDS RESTARTED AND ADJUSTED TO DECREASE BP; SEE CHART. PT HAS BEEN ON RA MOST OF THE TIME THE PAST COUPLE OF DAYS, ONLY USING O2 NIGHT BEFORE LAST BLEED IN TO CPAP. BIOX AT 96% ON RA TODAY. PT DOES GET SLIGHTLY SOB WITH EXERTION STILL. RECEIVING IV BUMEX PAST COUPLE OF DAYS, WHICH CONTINUES TO HELP. PT ABLE TO D/C TO HOME THIS AFTERNOON. PT'S DAUGHTER HERE TO ASSIST WITH BELONGINGS AND POLLOCK. D/C ORDERS PLACED AND THEN REVIEWED WITH PT AND DAUGHTER; VERBALIZED UNDERSTANDING. MEDS FAXED TO [facility], PER PT REQUEST. IV SITE D/C'D WNL'S. PT ASSISTED OUT WITH DAUGHTER'S HELP.
[2024-02-02] MEDS ORDERED: BENICAR 20 MG PO SCH (21:00)
== END 2024-02-02 16:55 | disposition home or self-care (01) | DRG 871 ==
LOC: ER 17:40 → MEDS 17:41 → ICUE 01-30 11:16 → MEDS 01-30 11:17 → ICUE 01-30 18:19 → MEDS 01-31 20:36
PROVIDERS: Family Medicine Adult Medicine; Internal Medicine Nephrology; Registered Nurse; Student in an Organized Health Care Education/Training Program; ADMIT Student in an Organized Health Care Education/Training Program
PROC: 3E03329 Introduction of Other Anti-infective into Peripheral Vein, Percutaneous Approach (ICD-10-PCS; principal; 2024-01-30)
PROC: 3E033XZ Introduction of Vasopressor into Peripheral Vein, Percutaneous Approach (ICD-10-PCS; 2024-01-30)
PROC: 5A09357 Assistance with Respiratory Ventilation, Less than 24 Consecutive Hours, Continuous Positive Airway Pressure (ICD-10-PCS; 2024-01-30)
DX: A41.51 Sepsis due to Escherichia coli [E. coli] (principal); I50.31 Acute diastolic (congestive) heart failure; J96.01 Acute respiratory failure with hypoxia; R65.21 Severe sepsis with septic shock; N17.9 Acute kidney failure, unspecified; N13.6 Pyonephrosis; I13.0 Hypertensive heart and chronic kidney disease with heart failure and stage 1 through stage 4 chronic kidney disease, or unspecified chronic kidney disease; Z68.41 Body mass index [BMI] 40.0-44.9, adult; E88.09 Other disorders of plasma-protein metabolism, not elsewhere classified; I27.20 Pulmonary hypertension, unspecified; N18.2 Chronic kidney disease, stage 2 (mild); F32.A Depression, unspecified; E03.9 Hypothyroidism, unspecified; D63.1 Anemia in chronic kidney disease; G47.33 Obstructive sleep apnea (adult) (pediatric); R73.9 Hyperglycemia, unspecified; E66.9 Obesity, unspecified; M32.9 Systemic lupus erythematosus, unspecified; I48.0 Paroxysmal atrial fibrillation; X58.XXXA Exposure to other specified factors, initial encounter; S83.207A Unspecified tear of unspecified meniscus, current injury, left knee, initial encounter; E87.6 Hypokalemia; Z87.442 Personal history of urinary calculi; Z98.84 Bariatric surgery status; Z90.710 Acquired absence of both cervix and uterus; Z98.890 Other specified postprocedural states; Z90.722 Acquired absence of ovaries, bilateral; Z88.5 Allergy status to narcotic agent; Z88.1 Allergy status to other antibiotic agents; Z79.899 Other long term (current) drug therapy; Z79.01 Long term (current) use of anticoagulants; Z87.891 Personal history of nicotine dependence; Z99.81 Dependence on supplemental oxygen; Z90.89 Acquired absence of other organs
CPT/HCPCS: 0241U; 36415; 71045; 74177; 80048; 80053; 81001; 83605; 83690; 83735; 83880; 84100; 84156; 84484; 85014; 85018; 85025; 87040; 87077; 87086; 87186; 93005; 93010; 93306; 94640; 94664; 94762; 96361; 96374-59; 96375; 96376; 97161; 97530; 99285-25; A9270; G0378; J0360; J0696; J0780; J1170; J1885; J2060; J2405; J3475; J7050; J7120; Q9967